=== PATIENT | female | born 1940 | race Caucasian/White ===

== ENCOUNTER → 2020-11-06 08:33 | Outpatient (CLI) | payer MEDICARE, SELFPAY ==
--- NOTE | 2020-11-06 | DI.MG.S_ITS ---
BILATERAL DIGITAL SCREENING MAMMOGRAM 3D/2D WITH CAD: 11/06/2020 CLINICAL: Routine screening. Family history of breast cancer. Comparison is made to exams dated: 03/09/2011 mammogram, 11/19/2015 mammogram, and 11/19/2015 ultrasound - outside facility. There are scattered fibroglandular elements in both breasts. Current study was also evaluated with a Computer Aided Detection (CAD) system. There is an oval high density mass with a spiculated and microlobulated margin and grouped fine calcifications in the left breast at 1 o'clock posterior depth. There is architectural distortion associated with the mass. No other significant masses, calcifications, or other findings are seen in either breast. IMPRESSION: INCOMPLETE: NEEDS ADDITIONAL IMAGING EVALUATION The oval high density mass in the left breast is indeterminate. Mediolateral and spot compression views as well as additional views with possible ultrasound are recommended. This exam was interpreted at Station ID: [id number]. NOTE: For mammograms, a report in lay terms will be sent to the patient. Approximately 15% of breast malignancies will not be visualized mammographically. In the management of a palpable breast mass, a negative mammogram must not discourage biopsy of a clinically suspicious lesion. Electronically Signed By: Ovi barkley/nathan:11/06/2020 09:39:37 letter sent: Additional Imaging Needed ACR BI-RADS Category 0: Incomplete [id number]
== END ==
PROVIDERS: PCP Family Medicine; Referring Provider Family Medicine; Visit Provider Family Medicine
DX: Z12.31 Encounter for screening mammogram for malignant neoplasm of breast (principal); Z80.3 Family history of malignant neoplasm of breast
CPT/HCPCS: 77063; 77067

== ENCOUNTER → 2020-12-02 08:35 | Outpatient (CLI) | payer MEDICARE, SELFPAY ==
--- NOTE | 2020-12-02 | DI.MG.S_ITS ---
UNILATERAL LEFT DIGITAL DIAGNOSTIC MAMMOGRAM 3D/2D WITH ADDITIONAL VIEWS: 12/02/2020 CLINICAL: Additional evaluation requested from prior study. Comparison is made to exams dated: 11/06/2020 mammogram - Located Within [facility], 11/19/2015 mammogram, 11/19/2015 ultrasound, and 03/09/2011 mammogram - outside facility. There are scattered fibroglandular elements in left breast. There is a 1.9 cm x 1.5 cm irregular high density mass with a spiculated and microlobulated margin and grouped fine pleomorphic calcifications in the left breast at 1 o'clock posterior depth. This is confirmed in additional views. There is architectural distortion associated with the mass. No other significant masses or calcifications are seen in the breast. IMPRESSION: INCOMPLETE: NEEDS ADDITIONAL IMAGING EVALUATION The 1.9 cm x 1.5 cm irregular high density mass in the left breast is indeterminate. An ultrasound is recommended for further evaluation and is scheduled to immediately follow this examination. This exam was interpreted at Station ID: [id number]. NOTE: For mammograms, a report in lay terms will be sent to the patient. Approximately 15% of breast malignancies will not be visualized mammographically. In the management of a palpable breast mass, a negative mammogram must not discourage biopsy of a clinically suspicious lesion. Electronically Signed By: Jann Jacobs M.D. aty/:12/02/2020 09:09:03 ACR BI-RADS Category 0: Incomplete [id number]
--- NOTE | 2020-12-02 | DI.US.S_ITS ---
ULTRASOUND OF LEFT BREAST AND AXILLA: 12/02/2020 CLINICAL: Patient returns today to evaluate a focal asymmetry in the left breast. Comparison is made to exams dated: 12/02/2020 mammogram, 11/06/2020 mammogram - [facility], 11/19/2015 mammogram, 11/19/2015 ultrasound, and 03/09/2011 mammogram - outside facility. Color flow and real-time ultrasound of the left breast axilla were performed. Paez scale images of the real-time examination were reviewed. There is a 1.2 cm x 2.1 cm x 1.5 cm taller than wide irregular mass in the left breast at 1 o'clock posterior depth 4 cm from the nipple. This irregular mass is hypoechoic with an echogenic boundary and posterior acoustic shadowing. This correlates with mammography findings. There are related calcifications within this mass. Color flow imaging demonstrates that there is no vascularity present. No significant abnormalities were seen sonographically in the left axilla. IMPRESSION: HIGHLY SUGGESTIVE OF MALIGNANCY The 1.2 cm x 2.1 cm x 1.5 cm taller than wide irregular mass in the left breast is highly suggestive of malignancy. An ultrasound guided biopsy is recommended. Findings and recommendations were discussed with the patient by Dr. Aguila during today's examination. This exam was interpreted at Station ID: [id number]. Electronically Signed By: Jann Jacobs M.D. at/:12/02/2020 10:31:27 letter sent: Biopsy Required Ultrasound BI-RADS: 5 Highly suggestive of malignancy
== END ==
PROVIDERS: PCP Family Medicine; Referring Provider Family Medicine; Visit Provider Family Medicine
DX: R92.8 Other abnormal and inconclusive findings on diagnostic imaging of breast (principal); N63.21 Unspecified lump in the left breast, upper outer quadrant
CPT/HCPCS: 76642; 77065; G0279

== ENCOUNTER → 2020-12-19 13:16 | Outpatient (CLI) | payer MEDICARE, SELFPAY ==
--- NOTE | 2020-12-19 | DI.US.S_ITS ---
PROCEDURE: US BX BREAST PERC W VAC DEVICE COMPARISON: None. INDICATIONS: LEFT BREAST ABNORMAL MAMMOGRAM FINDINGS: IMPRESSION: Dictated by: Argenis Castro MD, PhD on 12/19/2020 at 16:11 Approved by: Argenis Castro MD, PhD on 12/19/2020 at 16:11
--- NOTE | 2020-12-19 | PATH_ITS ---
[facility] Accession Number: [id number] . 01 Material submitted: . breast - LEFT BREAST MASS 1:00 4CMFN . 01 Diagnosis: Left Breast Mass, 1 o'clock, 4 cm from the Nipple, Needle Core Biopsy: Invasive mammary carcinoma. Histologic type: Ductal. Histologic grade: Moderately differentiated, grade 2/3. Combined total Tere histologic score 6 (tubule formation score 3/3, nuclear pleomorphism score 2/3, mitotic score 1/3). Size of invasive carcinoma: Present on multiple cores, single largest dimension of 2 mm in this sample. See comment. Ductal carcinoma in situ (DCIS): Not identified. Microcalcifications: Present, associated with benign parenchyma. Lymphovascular invasion: Not identified. ER: positive, greater than 99% of the cells, strong intensity. GA: positive, greater than 30% of the cells, strong intensity. HER-2: negative (1+) by immunohistochemistry. . V 12/23/2020 1620 Local . 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 Findings were called to on 12/23/20 at 1630 hours by . This H/E slides from this case have also been reviewed by Dr. Marisela Bryan, who concurs with the diagnosis. . 01 Electronically signed: . Jenn Cruz MD, Pathologist NPI- [id number] . 01 Gross description: . Received in formalin, labeled with the patient's name, are multiple pieces of simpson, soft tissue and clotted hemorrhagic tissue ranging in size from 0.8 x 0.5 x 0.3 cm to 0.3 x 0.3 x 0.2 cm. All tissue is entirely submitted in cassette A1. Collection date and time is listed as 12/19/20 for a total fixation time of approximately 50 hours. ([id number]) /FRR 12/20/2020 1540 Local . 01 Microscopic: . P63 and smooth muscle myosin heavy chain immunostains are performed and are negative in the area of invasive carcinoma, indicating an absence of myoepithelial layer, confirming the invasive nature of the glands. Controls stain appropriately. . * This test was developed and its performance characteristics determined by [employer]. It has not been cleared or approved by the U.S. Food and Drug Administration. The FDA has determined that such clearance or approval is not necessary. This test is used for clinical purposes. It should not be regarded as investigational or for research. . 01 Pathologist provided ICD-10: C50.922 . 01 CPT . 622420, O88108, V91924, 824293, 446058, 001790 Performed at: 01 [facility] [address] [place] [address], [place], [place] [id number] MD Ovi Obrien MD Phone: [phone]
--- NOTE | 2020-12-19 | DI.MG.S_ITS ---
UNILATERAL LEFT DIGITAL DIAGNOSTIC MAMMOGRAM 3D/2D POST-PROCEDURE IMAGING FOR MARKER PLACEMENT: 12/19/2020 CLINICAL: Left post clip. Comparison is made to exams dated: 12/02/2020 ultrasound, 12/02/2020 mammogram, and 11/06/2020 mammogram - [facility]. There are scattered fibroglandular elements in left breast. There is a marker clip in the appropriate position in the left breast at 1 o'clock posterior depth. This marker clip placement is at the biopsy site. IMPRESSION: POST PROCEDURE MAMMOGRAM FOR MARKER PLACEMENT There was a successful marker clip placement in the left breast posterior depth. This exam was interpreted at Station ID: [id number]. NOTE: For mammograms, a report in lay terms will be sent to the patient. Approximately 15% of breast malignancies will not be visualized mammographically. In the management of a palpable breast mass, a negative mammogram must not discourage biopsy of a clinically suspicious lesion. Electronically Signed By: Argenis Castro M.D. [facility]/:12/19/2020 14:23:48 ACR BI-RADS Category Post-procedure mammogram for marker placement
--- NOTE | 2020-12-19 13:37 | DI.US.S_ITS ---
Procedure: US bx breast perc w vac device ULTRASOUND GUIDED BIOPSY LEFT BREAST USING VACUUM DEVICE WITH MARKING DEVICE INSERTED AND POST DIGITAL MAMMOGRAPHIC IMAGIN12/19/2020 CLINICAL: Left breast mass. PATIENT CONSENT: Risks (minor bleeding, infection, vasovagal reaction and repeat procedure), benefits and alternatives were explained to the patient and written informed consent was obtained. Correlation is made to exams dated: 12/19/2020 mammogram, 12/02/2020 ultrasound, 12/02/2020 mammogram, 11/06/2020 mammogram - [facility], and 11/19/2015 mammogram - outside facility. An ultrasound guided biopsy using real-time ultrasound was performed for the irregular shaped mass located in the left breast at 1 o'clock middle depth. The skin was prepped in the usual manner. Local anesthetic was administered to the access site. The abnormality was approached from the lateral aspect. A 13 gauge biopsy needle was placed adjacent to the abnormality under ultrasound guidance. Once the needle was documented to be in the correct location, four specimens were obtained using the Mammotome biopsy system. A Vision biopsy clip was inserted into the biopsy cavity. Post procedure digital mammographic imaging was obtained. The specimens were sent to the laboratory for pathological analysis. IMPRESSION: ULTRASOUND GUIDED BIOPSY MALIGNANT Ultrasound guided biopsy of the mass in the left breast at 1 o'clock middle depth was successful. Pathology indicates malignant invasive ductal carcinoma. Pathology results are concordant with imaging findings. A surgical/oncologic consultation is recommended. This exam was interpreted at Station ID: [id number]. Argenis Jacobs M.D. [facility],[place]/:12/25/2020 18:37:02
== END ==
PROVIDERS: PCP Family Medicine; Referring Provider Family Medicine; Visit Provider Family Medicine
DX: C50.412 Malignant neoplasm of upper-outer quadrant of left female breast (principal); Z17.0 Estrogen receptor positive status [ER+]
CPT/HCPCS: 19083; 77065

== ENCOUNTER → 2021-01-16 09:45 | Outpatient (CLI) | payer MEDICARE, SELFPAY ==
[2021-01-16 11:54] LABS: COVID19 -Nasal RAPID Negative (Negative)
== END ==
PROVIDERS: PCP Family Medicine; Visit Provider Surgery
DX: Z01.812 Encounter for preprocedural laboratory examination (principal); Z20.822 Contact with and (suspected) exposure to COVID-19
CPT/HCPCS: 87635; C9803

== ENCOUNTER 2021-01-19 08:47 | Day surgery (SDC) | payer MEDICARE, SELFPAY ==
[2021-01-14 15:22] VITALS: BMI 24.6
[2021-01-19] VITALS (12 sets, daily range): BP systolic 113–160; BP diastolic 67–91; PULSE 55–88; RESP 10–20; TEMP 36.4–37.2; O2SAT 94–100; BMI 24.6
--- NOTE | 2021-01-19 | PATH_ITS ---
[facility] Accession Number: [id number] . 01 Material submitted: . PART A: breast - LEFT BREAST PART B: breast - LEFT BREAST SENTINEL NODE . 01 Clinical history: . A: STITCH IS LATERAL . 02 Diagnosis: A. Breast, Left, Total Mastectomy: Invasive mammary carcinoma. . B. [place] Node, Left Breast, [place] Lymph Node Biopsy: Two lymph nodes negative for metastatic carcinoma by immunohistochemistry studies (0/2). . Please see Cancer Case Summary below. . . CANCER CASE SUMMARY: . Invasive carcinoma of the breast with the following features: . Specimen Procedure: Total mastectomy and sentinel lymph node biopsy. Specimen laterality: Left. . Tumor Tumor site: Upper outer quadrant. Clock position: 1 o'clock, 4 cm from nipple by imaging report (12-02-20). Histologic type: Invasive carcinoma of no special type (ductal) by E-cadherin immunostain. Additional histologic patterns present; please see Additional Findings. Histologic grade: Glandular: 2/3. Nuclear pleomorphism: 2/3 Mitotic rate: 1/3 Overall grade: Grade 1 (5/9). Tumor size: 19 mm. Tumor focality: Single focus of invasive carcinoma. Ductal carcinoma in situ: Not identified. . Lobular carcinoma in situ: Not identified. . Tumor extent: Skin/nipple are uninvolved. . Lymphovascular invasion: Not identified. Dermal lymphovascular invasion: Not identified. . Microcalcifications: Present in invasive tumor and adjacent stroma. . Treatment effect in the breast: No known presurgical therapy. Treatment effect in lymph nodes: Not applicable. . Margins Margin status for invasive carcinoma: All margins negative for invasive carcinoma. Distance from invasive carcinoma to closest margins: 5 mm from posterior margin. 5 mm from the anterior - superior margin. Anterior - Inferior margin: Greater than 20 mm. Medial margin: Greater than 20 mm. Lateral margin: Greater than 20 mm. . Regional lymph nodes: Regional lymph node status: All regional lymph nodes negative for tumor by immunohistochemistry studies. Number of lymph nodes with macrometastasis: 0 Number of lymph nodes with micrometastasis: 0 Number of lymph nodes with isolated tumor cells: 0 Size of largest aaron metastatic deposit: Not appicable. Extranodal extension: Not identified. Total number of lymph nodes examined (sentinel and non-sentinel): 2. Number of sentinel nodes examined: 2. . Distant metastasis: No applicable. . Pathologic stage classification (pTNM, AJCC 8th Edition): pT1c pN0(i-). . Additional findings: Biopsy marker in slice 13, changes consistent with previous instrumentation present, fibroadenomatous changes present. 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 . Special studies Breast biomarker testing performed on [facility] biopsy ([id number]; 12/20/20) with the following by written report: . Estrogen receptor status: Positive (more than 90%, strong). Progesterone receptor status: Positive ( more than 30%, strong). HER2 by immunohistochemistry: Negative (score 1+). [facility] 01/23/2021 1704 Local . 02 Comment: As part of routine quality assurance supervisor body, this case was also reviewed by Dr. Beebe, who agrees with the interpretation. . 02 Electronically signed: . Claribel Campa MD, Pathologist NPI- [id number] . 01 Gross description: . A. Received in formalin, labeled left breast and consists of a left mastectomy specimen. Weight: 383 grams. Measurements: 16.0 cm from medial to lateral by 14.0 cm from superior to inferior to 4.0 cm from anterior to posterior. Skin Ellipse: There is a simpson-pink skin ellipse measuring 15.2 x 7.6 cm. Nipple/Areola: The nipple measures 1.0 x 1.0 x 0.4 cm and is everted. The areolar complex measures 3.0 x 2.6 cm. Axillary Tail: Absent. Margin: The specimen is oriented with a long suture designated lateral. The specimen is inked as follows: Anterosuperior blue, anteroinferior green and posterior black. Slices: The specimen is serially sectioned from medial to lateral into 17 slices. Lesion: There is a 1.9 x 1.9 x 1.5 cm firm simpson lobulated focally cystic and focally hemorrhagic mass within slices 11-13 with a silver metallic balloon-shaped biopsy marker in slice 13. Distance to margin: 0.2 cm from the deep margin, 0.4 cm from the anterosuperior margin and greater than 2 cm from the anteroinferior, medial, lateral margins and nipple. Other: Remaining cut surfaces are composed of approximately 75% simpson-yellow lobulated adipose tissue and 25% simpson-white fibrous tissue. [employer] sections are submitted. . A1: Nipple, perpendicularly sectioned. A2: Slice 10, medial to lesion. A3-A5: Slice 11, mass in relation to posterior and anterosuperior margin, bisected and thinned. A6-A8: Slice 12, mass in relation to posterior and anterosuperior margin, bisected and thinned. A9: Slice 12, closest skin margin. A10-A11: Slice 13, mass in relation to anterosuperior margin, thinned. A12: Slice 14, lateral to mass in relation to posterior and anterosuperior margins. A13-A14: Upper inner quadrant. A15-A16: Lower inner quadrant. A17-A18: Lower outer quadrant. A19: Nipple base and areolar complex. . Formalin fixation time: Approximately 23 hours. . B. Received in formalin, labeled left breast sentinel node consists of a 2.4 x 1.0 x 0.8 cm simpson-yellow fragment of adipose tissue, which is sectioned to reveal two simpson-pink lymph nodes measuring 0.7 x 0.5 x 0.4 cm and 1.1 x 0.7 x 0.5 cm. The larger lymph node is inked blue and bisected, and the lymph nodes are entirely submitted in cassette B1. (EA:[id number]) /MRV 01/20/2021 1407 Local . 02 Microscopic: . An immunohistochemistry study is performed to evaluate the cells of interest. The control stain shows appropriate reactivity. . RESULTS: Block B1: JASMIN: Negative. . Block A3: Myosin: Negative in region of interest. P63: Negative in region of interest. GATA3: Positive, supports primary breast carcinoma. E-Cadherin: Positive, supports ductal differentiation. . Block A6: Myosin: Negative in region of interest. P63: Negative in region of interest. . Block A8: Myosin: Negative in region of interest. P63: Negative in region of interest. . The absence of p63 and smooth muscle actin staining in the foci of interest mitigates against the presence of in situ carcinoma at these foci. . * This test was developed and its performance characteristics determined by [facility]. It has not been cleared or approved by the U.S. Food and Drug Administration. The FDA has determined that such clearance or approval is not necessary. This test is used for clinical purposes. It should not be regarded as investigational or for research. . 02 Pathologist provided ICD-10: C50.912 . 02 CPT . 322829, 049249, U56267, I23435 Performed at: 01 [facility] Cytology [address] [id number] MD Ovi Obrien MD Phone: [phone] Performed at: 02 [facility] [id number] [place] [id number] MD Chana Rogers MD Phone: [phone]
--- NOTE | 2021-01-19 08:49 | DI.NM.S_ITS ---
PROCEDURE: NM SENTINEL NODE WITH IMAGING RADIOPHARMACEUTICAL: 1.0 mCi Millipore filtered Tc-99m sulfur colloid. INDICATIONS: Left breast cancer COMPARISON: None. PROCEDURE: The area around the nipple was prepped and draped in a sterile fashion. Tc-99m sulfur colloid was injected intra-dermally around the outer edge of the areola in the left breast. Findings: Radiotracer uptake in a total of 3 sentinel nodes identified in the left axilla. IMPRESSION: Administration of radiotracer into the left breast periareolar region for intra-operative sentinel lymph node localization. Post injection imaging demonstrates 3 sentinel nodes in the left axilla. Dictated by: Argenis Castro MD, PhD on 01/19/2021 at 10:03 Approved by: Argenis Castro MD, PhD on 01/19/2021 at 10:05
[2021-01-19] MEDS: LACTATED RINGERS 1,000 ML 42 ML IV ×3 (11:02→17:58)
--- NOTE | 2021-01-19 12:47 | PM.PREOP ---
Pre-operative Note COVID-19 COVID-19 status: Negative Result date/Date tested (Pos, Neg/Pending): 01/16/21 Interval Note History & Physical reviewed/Exam performed by Physician: Yes Changes to H&P: No ASA Class (for procedural sedation): II
[2021-01-19] MEDS: CEFAZOLIN 1 GM VIAL 2 GM IV (13:10)
--- NOTE | 2021-01-19 13:30 | SUR.OPER ---
Supine on padded OR bed, head on pillow, arms secured on padded arm boards at <90 degrees abduction, legs uncrossed, safety belt at thigh, tape over blanket over lower legs. Gel pad under bilateral heels and left arm. Patients glasses placed in hospital designated black glass case with patient label and her cell phone placed in her own blue fabric belongings bag.
[2021-01-19] MEDS: BUPIVACAINE 0.5% (PF) 30 ML, EPINEPHrine 0.15 MG INJ (13:41)
[2021-01-19] MEDS: LIDOCAINE 1% 30 ML INJ (13:41)
--- NOTE | 2021-01-19 15:16 | PM.OP.1 ---
Operative Date/Time/Diagnoses Date of procedure: 01/19/21 Time of procedure: 15:16 Pre-op diagnosis: Left breast cancer Post-op diagnosis: same Procedure & Clinicians Procedure: Left mastectomy and sentinel lymph node biopsy Same procedure as scheduled: Yes Indications: Left breast cancer Surgeon: Joanna Chiang Click Yes if Unassisted: Yes Anesthesia Type: General Operative Notes Findings: Large palpable left breast cancer, hot sentinel node Closure Type: primary Specimen(s): other (Left breast, left sentinel lymph node) Estimated Blood Loss (mL): 20 Blood products transfused: none Procedure in detail: The patient is a 80-year-old woman with a newly diagnosed left breast cancer. She opted for a left mastectomy with a sentinel lymph node biopsy. Prior to surgery, the patient had her lymphoscintigraphy injection at Radiology. The patient was given 2 g of Ancef. The patient was brought to the operating room, placed on the table in the supine position and general anesthesia was induced via LMA. The arms were abducted on arm boards. The left breast and axilla were prepped and draped in the usual fashion. A time-out was performed. We made an elliptical skin incision encompassing the left areola and curving towards the axilla laterally. We used cautery to enter the plane between the breast tissue in the subcutaneous adipose tissue. We developed the superior flap 1st. We carried the dissection to the superior aspect of the breast tissue and when we saw pectoralis muscle we started to turn and lift the breast off the pectoral fascia. Her breast tissue did not extend to the clavicle due to her age in laxity. We then created an inferior flap and dissected the breast tissue down to the inframammary fold. We carried the dissection laterally to the edge of the latissimus muscle. We then removed the breast tissue from the field. We used a single silk stitch to joanna the lateral aspect. We could feel the mass in the upper outer quadrant near the posterior margin but no visible tumor like material was seen. We could also feel what was likely the clip from the biopsy near the posterior margin. Next we turned our attention to the axilla. We explored the axilla through the superior lateral aspect of the wound. We used the probe to find a single hot sentinel node. We then performed an ex vivo count and recorded a count of 472. The background axillary count was 58. Finally, we irrigated the wound cavity with 2 L of saline. We checked for hemostasis and addressed a few small bleeders with cautery. We injected additional local into the muscle and fascia. We then placed 2 drains; the lateral drain went into the axilla and the more medial drain stayed over the pectoral muscle. Drains were secured to the skin with a 2-0 nylon stitch. We then closed the incision in layers using interrupted 3-0 Vicryl dermal sutures followed by running 4-0 Monocryl subcuticular stitch. Dressings were applied and the patient was brought to recovery room. EBL: 20 mL Post-operative Condition: stable Disposition: PACU
--- NOTE | 2021-01-19 16:38 | SUR.PHASEI ---
had left mastectomy and did very well post op. Numbing medicine kept her free of pain. Report given to Silvia on acute care
--- NOTE | 2021-01-19 19:03 | PC.NURSE ---
Pt arrived from PACU this afternoon at 1625 Alert, ox4, pleasant, VSS, afebrile (98.9- 99.0 F)on RA. She denies pain/nausea. She tolerates dinner meal with good po intake. SCOOTER drain x2 minimal serosanguineous output. Pt not yet voided since prior to surgery, but currently denies the urge. Encouraged patient to use IS and call for assistance. at bedside briefly, supportive and went home for the night. Dressing to L chest, c/d/I/
[2021-01-20 00:05] VITALS: BP 124/67; PULSE 55; RESP 16; TEMP 36.7; O2SAT 95
[2021-01-20 03:34] VITALS: BP 126/74; PULSE 53; RESP 12; TEMP 36.6; O2SAT 95
[2021-01-20 05:00] VITALS: BP 130/80; PULSE 52; RESP 18; TEMP 36.3; O2SAT 100
[2021-01-20 08:35] VITALS: BP 127/71; PULSE 64; RESP 16; TEMP 37.3; O2SAT 97
--- NOTE | 2021-01-20 08:44 | PM.DS.1 ---
History of Present Illness History of Present Illness Date Patient Seen: 01/20/21 Time Patient Seen: 08:45 Chief complaint: LEFT MASTECTOMY W/SENTINEL NODE BX Discharge Providers Provider Discharge Date: 01/20/21 Primary care physician: Jimmie Carty MD Discharge provider: Denis Chiang MD Summary Hospital Course Discharge Diagnosis: Left breast cancer Hospital Course: Jacqueline had a left breast mastectomy and sentinel lymph node biopsy on 01/21/21. She tolerated the procedure well and was discharged home the following day. Time Spent with Patient Time spent: Less than 30 minutes Exam Vital Signs (past 8 hours): - 01/20/21 03:34 01/20/21 05:00 Temperature 97.9 F 97.4 F L Pulse Rate 53 L 52 L Respiratory Rate 12 18 Blood Pressure 126/74 130/80 Pulse Oximetry 95 100 Oxygen Delivery Method Room Air Oxygen Flow Rate 0 PFSH Medical History (Updated 01/12/21 @ 12:03 by Gino Mcmahan MD) Breast cancer, left Surgical History (Updated 01/15/21 @ 08:26 by Lexy Mclean RN) History of tonsillectomy (1945) Hx of dilation and curettage (1984) Family History (Updated 01/06/21 @ 10:41 by Beverly Queen MA) Father Hypertension Mother Cancer Hypertension Social History (Updated 01/06/21 @ 10:42 by Beverly Queen MA) marital status: number of children: 3 household members: spouse lives independently: Yes occupational status: previously employed Smoking Status: Former smoker alcohol intake: current substance use type: does not use Discharge Plan Discharge Plan Patient Disposition: Home Discharge orders & Medications Discharge Orders: Discharge (Order); Ordered 01/20/21 Ordered By: Denis Chiang Prescriptions: Continued potassium chloride 10 mEq Capsule, Extended Release 10 meq PO DAILY RF: 0 magnesium 200 mg Tablet 200 mg PO DAILY RF: 0 acetaminophen [Tylenol] 325 mg Capsule 650 mg PO Q6H PRN (Reason: Pain (Scale Score 4-6)) RF: 0 Centrum Silver Women 8 mg iron-400 mcg-300 mcg Tablet 1 tab PO DAILY RF: 0 Glucosamine Chondroitin 550-30-1 mg Capsule 1 cap PO BID RF: 0 Follow up/Referrals: Jimmie Carty MD [Primary Care Provider] - Diet/Activity/Treatments Diet: Regular Activity: No restrictions Skin/Wound/Dressing Care Dressing: Ok to remove binder and bulky dressings 24 hours after surgery. Leave steri-strips until they start to fall off. Record drain output Discharge Data Primary Care Provider: Jimmie Carty Attending Provider: Denis Chiang Quality VTE Deep Vein Thrombosis/Pulmonary Embolism Present on Admission: No
--- NOTE | 2021-01-20 09:48 | PC.NURSE ---
Pt is dressed and ready for discharge home with Spouse. No new meds - Pt to continue home meds as previous. Discussed wound care, drain care, stroke symptoms, and follow up. Pt denies further questions and was discharged to home via w/c to pov by RN with Spouse and all belongings.
== END 2021-01-20 09:50 | disposition home or self-care (01) ==
LOC: OR 08:49 → AC 16:53
PROVIDERS: PCP Family Medicine; Referring Provider Family Medicine; Visit Provider Surgery
PROC: 0HTU0ZZ Resection of Left Breast, Open Approach (ICD-10-PCS; CPT 19303; principal; 2021-01-19 12:30)
DX: C50.412 Malignant neoplasm of upper-outer quadrant of left female breast (principal); Z17.0 Estrogen receptor positive status [ER+]
CPT/HCPCS: 19303; 38500; 38792; A9541; J0171; J0690; J1100; J2405; J2704; J3010

== ENCOUNTER → 2021-12-22 11:20 | Outpatient (CLI) | payer MEDICARE, SELFPAY ==
[2021-01-19 16:46] VITALS: BMI 24.6
--- NOTE | 2021-12-22 | DI.MG.S_ITS ---
UNILATERAL RIGHT DIGITAL SCREENING MAMMOGRAM 3D/2D WITH CAD: 12/22/2021 CLINICAL: Routine screening. Family history of breast cancer. Breast Cancer. Comparison is made to exams dated: 11/06/2020 mammogram - [facility], 03/09/2011 mammogram, and 11/19/2015 mammogram - outside facility. There are scattered areas of fibroglandular density in the right breast (category b / 25%-50% glandular tissue). Current study was also evaluated with a Computer Aided Detection (CAD) system. No significant masses, calcifications, or other findings are seen in the breast. There has been no significant interval change. IMPRESSION: NEGATIVE There is no mammographic evidence of malignancy. A 1 year screening mammogram is recommended. This exam was interpreted at Station ID: [id number]. NOTE: For mammograms, a report in lay terms will be sent to the patient. Approximately 15% of breast malignancies will not be visualized mammographically. In the management of a palpable breast mass, a negative mammogram must not discourage biopsy of a clinically suspicious lesion. Electronically Signed By: Bogdan jaramillo/nathan:12/22/2021 16:53:24 letter sent: Normal Exam ACR BI-RADS Category 1: Negative [id number]
== END ==
PROVIDERS: PCP Family Medicine; Referring Provider Family Medicine; Visit Provider Family Medicine
DX: Z12.31 Encounter for screening mammogram for malignant neoplasm of breast (principal); Z85.3 Personal history of malignant neoplasm of breast; Z80.3 Family history of malignant neoplasm of breast
CPT/HCPCS: 77063; 77067

== ENCOUNTER → 2022-12-25 10:02 | Outpatient (CLI) | payer MEDICARE, SELFPAY ==
[2021-01-19 16:46] VITALS: BMI 24.6
--- NOTE | 2022-12-25 10:04 | DI.MG.S_ITS ---
UNILATERAL RIGHT DIGITAL SCREENING MAMMOGRAM 3D/2D WITH CAD: 12/25/2022 CLINICAL: Routine screening. Personal history of left breast cancer. Family history of breast cancer. Comparison is made to exams dated: 12/22/2021 mammogram, 11/06/2020 mammogram - [facility], and 11/19/2015 mammogram - outside facility. There are scattered areas of fibroglandular density in the right breast (category b / 25%-50% glandular tissue). Current study was also evaluated with a Computer Aided Detection (CAD) system. There is an irregular high density asymmetry in the right breast sub-areolar depth central to the nipple seen on the mediolateral oblique view only. No other significant masses or calcifications are seen in the breast. IMPRESSION: INCOMPLETE: NEEDS ADDITIONAL IMAGING EVALUATION The irregular high density asymmetry in the right breast is indeterminate. Additional views with possible ultrasound are recommended. This exam was interpreted at Station ID: [id number]. NOTE: For mammograms, a report in lay terms will be sent to the patient. Approximately 15% of breast malignancies will not be visualized mammographically. In the management of a palpable breast mass, a negative mammogram must not discourage biopsy of a clinically suspicious lesion. Electronically Signed By: Christina atkinson/nathan:12/27/2022 13:00:08 letter sent: Additional Imaging Needed ACR BI-RADS Category 0: Incomplete 3340F
== END ==
PROVIDERS: PCP Family Medicine; Referring Provider Family Medicine; Visit Provider Family Medicine
DX: Z12.31 Encounter for screening mammogram for malignant neoplasm of breast (principal); R92.8 Other abnormal and inconclusive findings on diagnostic imaging of breast; Z80.3 Family history of malignant neoplasm of breast; Z85.3 Personal history of malignant neoplasm of breast; N64.89 Other specified disorders of breast
CPT/HCPCS: 77063; 77067

== ENCOUNTER → 2023-01-12 09:32 | Outpatient (CLI) | payer MEDICARE, SELFPAY ==
[2021-01-19 16:46] VITALS: BMI 24.6
--- NOTE | 2023-01-12 09:33 | DI.MG.S_ITS ---
UNILATERAL RIGHT DIGITAL DIAGNOSTIC MAMMOGRAM 3D/2D WITH ADDITIONAL VIEWS: 01/12/2023 CLINICAL: Additional evaluation requested from prior study. Comparison is made to exams dated: 12/25/2022 mammogram, 12/22/2021 mammogram, 11/06/2020 mammogram - [facility], and 11/19/2015 mammogram - outside facility. There are scattered areas of fibroglandular density in the right breast (category b / 25%-50% glandular tissue). The previously described irregular asymmetry in the right breast sub-areolar depth central to the nipple seen on the mediolateral oblique view only is no longer seen and most likely is fibroglandular tissue. This is not seen in additional views and is consistent with summation artifact. No other significant masses or calcifications are seen in the breast. IMPRESSION: INCOMPLETE: NEEDS ADDITIONAL IMAGING EVALUATION An ultrasound is recommended to confirm the no longer seen irregular asymmetry in the right breast sub-areolar depth central to the nipple seen on the mediolateral oblique view only. This will immediately follow this exam. This exam was interpreted at Station ID: [id number]. NOTE: For mammograms, a report in lay terms will be sent to the patient. Approximately 15% of breast malignancies will not be visualized mammographically. In the management of a palpable breast mass, a negative mammogram must not discourage biopsy of a clinically suspicious lesion. Electronically Signed By: Jann Jacobs M.D. aty/:01/12/2023 10:46:32 ACR BI-RADS Category 0: Incomplete [id number]
--- NOTE | 2023-01-12 09:33 | DI.US.S_ITS ---
ULTRASOUND OF RIGHT BREAST AND AXILLA: 01/12/2023 CLINICAL: Patient returns today to evaluate an asymmetry in the right breast. Comparison is made to exams dated: 01/12/2023 mammogram, 12/25/2022 mammogram, 12/22/2021 mammogram, 12/19/2020 ultrasound biopsy, 12/19/2020 mammogram, and 12/02/2020 ultrasound - . Real-time ultrasound of the right breast axilla was performed. Paez scale images of the real-time examination were reviewed. No significant abnormalities were seen sonographically in the right axilla. IMPRESSION: NEGATIVE There is no sonographic evidence of malignancy. There is no abnormality seen in the right breast to correspond with the mammography finding which likely represents normal fibroglandular tissue. A 1 year screening mammogram is recommended. Findings and recommendations were conveyed to the patient during today's evaluation. This exam was interpreted at Station ID: [id number]. Electronically Signed By: Jann Jacobs M.D. aty/:01/12/2023 10:47:29 letter sent: Normal Exam Ultrasound BI-RADS: 1 Negative
== END ==
PROVIDERS: PCP Family Medicine; Referring Provider Family Medicine; Visit Provider Family Medicine
DX: R92.8 Other abnormal and inconclusive findings on diagnostic imaging of breast (principal)
CPT/HCPCS: 76642; 77065; G0279

== ENCOUNTER → 2023-02-02 08:58 | Outpatient (CLI) | payer MEDICARE, SELFPAY ==
[2021-01-19 16:46] VITALS: BMI 24.6
[2023-02-02 10:44] LABS: Alanine Aminotransferase 25 IU/L (<35); Albumin 4.2 g/dL (3.5-5.0); Albumin Globulin Ratio 1.8 (1.0-2.8); Alkaline Phosphatase 72 U/L (38-126); Aspartate Aminotransferase 38 IU/L (14-36); Bilirubin Total 0.7 mg/dL (0.2-1.3); Blood Urea Nitrogen 9 mg/dL (7-17); Calcium 9.6 mg/dL (8.4-10.2); Carbon Dioxide 29 mmol/L (22-32); Chloride 94 mmol/L (98-107); Cholesterol 231 mg/dL (140-199); Estimated Glomerular Filt Rate > 60 mL/min (>60); Globulin 2.4 g/dL (1.7-4.1); Glucose 93 mg/dL (80-110); HDL Cholesterol 94 mg/dL (40-60); HEMOLYSIS < 15 (0-50); LDL Cholesterol Calculated 115 mg/dL (<100); Potassium 4.5 mmol/L (3.4-5.1); Sodium 130 mmol/L (137-145); Total Protein 6.6 g/dL (6.3-8.2); Triglycerides 109 mg/dL (35-150)
== END ==
PROVIDERS: PCP Family Medicine; Referring Provider Family Medicine; Visit Provider Family Medicine
DX: I10 Essential (primary) hypertension (principal); I83.90 Asymptomatic varicose veins of unspecified lower extremity
CPT/HCPCS: 36415; 80053; 80061

== ENCOUNTER → 2024-02-06 08:27 | Outpatient (CLI) | payer MEDICARE, SELFPAY ==
[2021-01-19 16:46] VITALS: BMI 24.6
--- NOTE | 2024-02-06 08:29 | DI.MG.S_ITS ---
UNILATERAL RIGHT DIGITAL SCREENING MAMMOGRAM 3D/2D WITH CAD POST MASTECTOMY: 02/06/2024 CLINICAL: Routine screening. Personal history of left breast cancer. Family history of breast cancer. Comparison is made to exams dated: 12/25/2022 mammogram, 12/22/2021 mammogram, and 12/02/2020 mammogram - [facility]. There are scattered areas of fibroglandular density (category b / 25%-50% glandular tissue). Current study was also evaluated with a Computer Aided Detection (CAD) system. No significant masses, calcifications, or other findings are seen in the breast. There has been no significant interval change. IMPRESSION: NEGATIVE There is no mammographic evidence of malignancy. A 1 year screening mammogram is recommended. This exam was interpreted at Station ID: [id number]. NOTE: For mammograms, a report in lay terms will be sent to the patient. Approximately 15% of breast malignancies will not be visualized mammographically. In the management of a palpable breast mass, a negative mammogram must not discourage biopsy of a clinically suspicious lesion. Electronically Signed By: Jann beltran/nathan:02/06/2024 17:50:57 letter sent: Normal Exam ACR BI-RADS Category 1: Negative
== END ==
PROVIDERS: PCP Family Medicine; Referring Provider Family Medicine; Visit Provider Family Medicine
DX: Z12.31 Encounter for screening mammogram for malignant neoplasm of breast (principal); Z85.3 Personal history of malignant neoplasm of breast; Z80.3 Family history of malignant neoplasm of breast
CPT/HCPCS: 77063; 77067

== ENCOUNTER → 2024-05-17 12:01 | Outpatient (CLI) | payer MEDICARE, SELFPAY ==
[2021-01-19 16:46] VITALS: BMI 24.6
[2024-05-17 12:53] LABS: Alanine Aminotransferase 30 IU/L (<35); Albumin 4.7 g/dL (3.5-5.0); Alkaline Phosphatase 80 U/L (38-126); Aspartate Aminotransferase 40 IU/L (14-36); BUN Creatinine Ratio 16.5 (6-22); Bilirubin Total 0.5 mg/dL (0.2-1.3); Blood Urea Nitrogen 13 mg/dL (7-17); Calcium 9.6 mg/dL (8.4-10.2); Carbon Dioxide 28 mmol/L (22-32); Chloride 103 mmol/L (98-107); Cholesterol 196 mg/dL (140-199); Estimated Glomerular Filt Rate > 60 mL/min (>60); Globulin 2.4 g/dL (1.7-4.1); Glucose 91 mg/dL (80-110); HDL Cholesterol 102 mg/dL (40-60); HEMOLYSIS < 15 (0-50); LDL Cholesterol Calculated 67 mg/dL (<100); Potassium 4.1 mmol/L (3.4-5.1); Sodium 139 mmol/L (137-145); Total Protein 7.1 g/dL (6.3-8.2); Triglycerides 133 mg/dL (35-150)
== END ==
LOC: LAB 12:03
PROVIDERS: PCP Family Medicine; Referring Provider Family Medicine; Visit Provider Family Medicine
DX: E78.5 Hyperlipidemia, unspecified (principal); Z00.00 Encounter for general adult medical examination without abnormal findings; I10 Essential (primary) hypertension; N63.10 Unspecified lump in the right breast, unspecified quadrant
CPT/HCPCS: 36415; 80053; 80061

== ENCOUNTER → 2024-12-11 08:01 | Outpatient (CLI) | payer MEDICARE, SELFPAY ==
[2021-01-19 16:46] VITALS: BMI 24.6
--- NOTE | 2024-12-11 08:02 | DI.ECHO.S_ITS ---
[facility] : : [address] : : [place] : : [id number] : : Phone: [phone] Echocardiogram Report + + :Name: ALTAGRACIA NICHOLSON Study Date: 12/11/2024 Height: 64 in : :[facility] ReadingLocation: Weight: 150 lb : : Gender: Female BSA: 1.7 m2 : :: 1940 Age: 84 yrs BP: 129/105 mmHg: :Reason For Study: ATRIAL FIBRILLATION : :Ordering Physician: MALICK, : :DENISE Performed By: Simeon Bowie : :Referring: DENISE TERESA : + + Interpretation Summary The patient was in atrial fibrillation with heart rates between 73-112 bpm during the exam. The left ventricle is normal in size. Left ventricular systolic function is severely reduced. There is moderate to severe global hypokinesis of the left ventricle. LVEF 25 to 30% Diastolic parameters suggest a restrictive filling pattern consistent with probable significantly elevated filling pressures. Right ventricular systolic function is mild to moderately reduced. The left atrium is severely dilated. There is moderate to severe mitral regurgitation. There is moderate tricuspid regurgitation. The right ventricular systolic pressure is estimated to be at least 51 mmHg based on an estimated right atrial pressure of 15 mm Hg. The ascending aorta is mildly enlarged. Report sent to PCP. Procedure: A two-dimensional transthoracic echocardiogram with color flow and Doppler was performed. The study quality was technically good. There is no prior echocardiogram noted for this patient. The patient was in atrial fibrillation with heart rates between 73-112 bpm during the exam. Left Ventricle: The left ventricle is normal in size. There is normal left ventricular wall thickness. There is no ventricular septal defect visualized. There is no thrombus. The ejection fraction is estimated to be 25-30%. Left ventricular systolic function is severely reduced. There is moderate to severe global hypokinesis of the left ventricle. Diastolic parameters suggest a restrictive filling pattern consistent with probable significantly elevated filling pressures. Right Ventricle: The right ventricle is grossly normal size. Right ventricular systolic function is mild to moderately reduced. Atria: The left atrium is severely dilated. The right atrium is mild to moderately dilated. There is no Doppler evidence for an interatrial shunt. Mitral Valve: There is mild mitral annular calcification. The mitral valve leaflets are mildly calcified. The mitral valve leaflets appear borderline thickened. There is moderate to severe mitral regurgitation. Aortic Valve: The aortic valve is trileaflet. The aortic valve opens well. The aortic valve is slightly calcified. There is no aortic valve stenosis. There is trace aortic regurgitation. Tricuspid Valve: Tricuspid leaflets are thickened. The tricuspid annulus is dilated. There is moderate tricuspid regurgitation. The right ventricular systolic pressure is estimated to be at least 51 mmHg based on an estimated right atrial pressure of 15 mm Hg. Pulmonic Valve: The pulmonic valve leaflets are thin and pliable; valve motion is normal. There is trace pulmonic regurgitation. Great Vessels: The aortic root is normal size. The ascending aorta is mildly enlarged. The pulmonary artery is normal size. The IVC is dilated (diameter is greater than 2.1 cm) and it collapses less than 50% with a sniff. This suggests a high right atrial pressure of 15 mm Hg. Pericardium/ Pleura There is no pericardial effusion. There is no pleural effusion. MMode/2D Measurements & Calculations LVIDd: 5.1 cm LVOT diam: 1.8 cm LVIDs: 4.3 cm Ao root diam: 2.8 cm FS: 15.4 % asc Aorta Diam: 3.8 cm EPSS: 1.4 cm IVSd: 0.75 cm LVPWd: 0.70 cm LV grace. diameter/BSA (cm/m^2): 2.9 LV sys. diameter/BSA (cm/m^2): 2.5 LA A2 area: 24.0 cm2 RA long axis: 5.2 cm LA A4 area: 26.0 cm2 RA area: 22.2 cm2 LA length (vol): 6.6 cm RA vol: 80.5 ml LA vol: 80.2 ml RA : 46.5 ml/m2 LA vol index: 46.3 ml/m2 IVC diam: 2.6 cm RVD1 (basal): 3.2 cm RVD2 (mid): 1.8 cm TAPSE: 1.8 cm Doppler Measurements & Calculations Ao V2 max: 138.5 cm/sec LVOT Max Rl: 90.1 cm/sec Ao V2 mean: 96.6 cm/sec LV V1 max P.2 mmHg Ao max P.7 mmHg LV V1 VTI: 17.0 cm Ao mean P.1 mmHg DILMA(I,D): 1.7 cm2 Ao V2 VTI: 24.8 cm DILMA(V,D): 1.6 cm2 sev ratio: 0.69 DILMA indexed to BSA (cm^2/m^2): 0.97 MV E max rl: 112.1 cm/sec TR max rl: 300.2 cm/sec MV A max rl: 31.8 cm/sec TR max P.0 mmHg MV E/A: 3.5 PA V2 max: 100.7 cm/sec Med Peak E' Rl: 5.7 cm/sec PA V2 mean: 67.1 cm/sec E/E' med: 19.7 PA mean P.0 mmHg Lat Peak E' Rl: 6.7 cm/sec PA pr(Accel): 55.0 mmHg E/E' lat: 16.7 E/e' average: 18.2 MV dec time: 0.13 sec MR ERO: 0.17 cm2 MR PISA: 2.5 cm2 SV(LVOT): 41.8 ml MR flow rate: 92.3 cm3/sec MR PISA radius: 0.63 cm Reading Physician:09:44 AM
== END ==
PROVIDERS: PCP Family Medicine; Referring Provider Family Medicine; Visit Provider Family Medicine
DX: I08.1 Rheumatic disorders of both mitral and tricuspid valves (principal); I48.91 Unspecified atrial fibrillation; I10 Essential (primary) hypertension; I77.89 Other specified disorders of arteries and arterioles
CPT/HCPCS: 93306

== ENCOUNTER → 2025-01-16 08:23 | Outpatient (CLI) | payer MEDICARE, SELFPAY ==
[2021-01-19 16:46] VITALS: BMI 24.6
[2025-01-16 09:06] LABS: Add Manual Diff / Slide Review NO; Hematocrit 39.1 % (36-46); Hemoglobin 13.2 g/dL (12.0-16.0); Lymphocytes Absolute Auto 1200 /uL (1100-4500); Mean Corpuscular HGB Conc 33.6 % (30-36); Mean Corpuscular Hemoglobin 29.8 PG (26-34); Mean Corpuscular Volume 88.6 fL (80-100); Platelet Count 226 X10^3/uL (150-400)
[2025-01-16 09:33] LABS: Blood Urea Nitrogen 18 mg/dL (7-17); Calcium 9.2 mg/dL (8.4-10.2); Carbon Dioxide 27 mmol/L (22-32); Chloride 92 mmol/L (98-107); Estimated Glomerular Filt Rate 42 mL/min (>60); Glucose 96 mg/dL (70-99); HEMOLYSIS < 15 (0-50); Potassium 4.8 mmol/L (3.4-5.1); Sodium 128 mmol/L (137-145)
== END ==
PROVIDERS: PCP Family Medicine; Referring Provider Internal Medicine; Visit Provider Internal Medicine
DX: I48.19 Other persistent atrial fibrillation (principal)
CPT/HCPCS: 36415; 80048; 85025

== ENCOUNTER → 2025-02-20 09:03 | Outpatient (CLI) | payer MEDICARE, SELFPAY ==
[2021-01-19 16:46] VITALS: BMI 24.6
--- NOTE | 2025-02-20 09:04 | DI.ECHO.S_ITS ---
[facility]+ [facility] : : [address] : : [place] : : [id number] : : Phone: [phone] Echocardiogram Report + + :Name: ALTAGRACIA NICHOLSON Study Date: 02/20/2025 Height: 64 in : :[facility] ReadingLocation: Weight: 145 lb : : Gender: Female BSA: 1.7 m2 : :: 1940 Age: 84 yrs BP: 170/100 mmHg: :Reason For Study: Acute systolic heart failure : :Ordering Physician: VERONICA OROURKE Performed By: Mukund Perez : :Referring: VERONICA OROURKE : + + Interpretation Summary - The left ventricular contractility is borderline. Estimated ejection fraction is approximately 50 to 55% with no segmental wall motion abnormalities. No LVH. Grade 1 diastolic dysfunction. - The right ventricular contractility is normal. - Mild biatrial enlargement. The left ventricular cavity is also borderline enlarged. The right ventricle is of normal size. - Mild to moderate mitral regurgitation. - Mild aortic insufficiency. - No obvious intracardiac shunts. - No obvious intracardiac masses nor thrombi. - No hemodynamically significant pericardial effusion. - Normal right-sided filling pressures. Conclusion: Low normal left ventricular systolic function with mild to moderate valvular insufficiencies. When compared with previous echocardiogram, there is significant improvement in the left ventricular contractility as well as a decrease in the degree of valvular insufficiencies. Procedure: A two-dimensional transthoracic echocardiogram with color flow and Doppler was performed. The study quality was technically adequate. Comparison is made with the echocardiogram of 12/11/2024. The patient was in a bradycardic rhythm during the exam. Left Ventricle: The left ventricle is borderline dilated. Left ventricular wall thickness is normal. The ejection fraction is estimated to be 50-55%. Left ventricular systolic function has significantly improved compared to the previous exam. There are no focal wall motion abnormalities. Grade I diastolic dysfunction with normal left atrial pressure. Right Ventricle: The right ventricle is normal in size and function. Atria: The left atrium is mildly dilated. The right atrium is mildly dilated. There is no Doppler evidence for an interatrial shunt. Mitral Valve: The mitral valve leaflets appear to open well. There is no mitral valve stenosis. There is mild to moderate mitral regurgitation. Aortic Valve: The aortic valve is trileaflet. The aortic valve opens well. There is no aortic valve stenosis. There is mild aortic regurgitation. Tricuspid Valve: The tricuspid valve is not well visualized, but is grossly normal. There is trace tricuspid regurgitation. The right ventricular systolic pressure is estimated to be at least 31 mmHg based on an estimated right atrial pressure of 8 mm Hg. Pulmonic Valve: The pulmonic valve is not well seen, but is grossly normal. There is trace pulmonic regurgitation. Great Vessels: The aortic root is normal size. The ascending aorta is at the upper limits of normal in size. The aortic arch could not be visualized. The pulmonary artery is normal size. The IVC is dilated (diameter is greater than 2.1 cm) yet it collapses greater than 50% with a sniff. This suggests a right atrial pressure of 8 mm Hg. Pericardium/ Pleura There is no pericardial effusion. MMode/2D Measurements & Calculations LVIDd: 5.5 cm LVOT diam: 2.0 cm LVIDs: 3.3 cm Ao root diam: 2.9 cm FS: 40.0 % asc Aorta Diam: 3.7 cm IVSd: 0.85 cm LVPWd: 0.87 cm LV grace. diameter/BSA (cm/m^2): 3.2 LV sys. diameter/BSA (cm/m^2): 1.9 LA A2 area: 20.3 cm2 RA long axis: 5.5 cm LA A4 area: 25.5 cm2 RA area: 19.6 cm2 LA length (vol): 6.5 cm RA vol: 59.7 ml LA vol: 67.6 ml RA : 35.0 ml/m2 LA vol index: 39.6 ml/m2 IVC diam: 2.2 cm RVD1 (basal): 2.9 cm RVD2 (mid): 2.0 cm TAPSE: 2.3 cm Doppler Measurements & Calculations Ao V2 max: 162.1 cm/sec LVOT Max Rl: 112.4 cm/sec Ao V2 mean: 107.5 cm/sec LV V1 max P.1 mmHg Ao max P.5 mmHg LV V1 VTI: 27.8 cm Ao mean P.2 mmHg DILMA(I,D): 2.3 cm2 Ao V2 VTI: 37.1 cm DILMA(V,D): 2.2 cm2 sev ratio: 0.75 DILMA indexed to BSA (cm^2/m^2): 1.4 AI P1/2t: 688.2 msec AI dec slope: 162.0 cm/sec2 MV E max rl: 93.2 cm/sec TR max rl: 238.9 cm/sec MV A max rl: 100.7 cm/sec TR max P.9 mmHg MV E/A: 0.93 PA pr(Accel): 22.5 mmHg Med Peak E' Rl: 5.5 cm/sec E/E' med: 16.8 Lat Peak E' Rl: 6.3 cm/sec E/E' lat: 14.8 E/e' average: 15.8 MV dec time: 0.25 sec SV(LVOT): 86.5 ml Reading Physician:CLOVIS
== END ==
LOC: ECHO 09:04
PROVIDERS: PCP Family Medicine; Referring Provider Internal Medicine; Visit Provider Internal Medicine
DX: I08.0 Rheumatic disorders of both mitral and aortic valves (principal); I50.21 Acute systolic (congestive) heart failure
CPT/HCPCS: 93306